=== PATIENT | male | born 1955 | race Caucasian/White ===

== ENCOUNTER → 2018-12-05 | Outpatient (CLI) | payer OTHER ==
[~2018-12-05] MED LIST: ASPIRIN81 M1 PO; ASPRIN; CARVEDILOL3.125 MG PO; CYMBALTA60 MG PO; DAYPRO600 M1 PO; FLEXERIL5 MG PO; GOOD SENSE ASPI81 M1 PO; HUMALOG100 U/ML; IMDUR SA30 MG PO; JANUVIA100 MG PO; LANTUS100 U/ML SC; LEVEMIR100 U/ML SC; LISINOPRIL/HCTZ1 TA1 PO; LISINOPRIL10 MG PO; LOPRESSOR25 MG PO; METFORMIN1000 MG PO; METFORMIN500 MG PO; MOBIC15 MG PO; NITROSTAT0.4 MG SL; NOVOLOG1 UNIT/0.0 SC; PERCOCET 650 MG1 TA1 PO; PLAVIX75 MG PO; PRAVACHOL40 MG PO; PRAVACHOL80 MG PO; PREDNICOT20 MG PO; RANEXA1000 MG PO; SERTRALINE100 MG PO; ULTRAM50 MG PO; VICODIN ES 7501 TAB PO; ZOLOFT100 MG PO
== END | disposition home or self-care (01) ==
LOC: RESCLI 02:39
DX: E78.00 Pure hypercholesterolemia, unspecified (principal); E11.59 Type 2 diabetes mellitus with other circulatory complications; I10 Essential (primary) hypertension; F32.0 Major depressive disorder, single episode, mild; M19.90 Unspecified osteoarthritis, unspecified site; I20.8 Other forms of angina pectoris; J30.89 Other allergic rhinitis; E03.9 Hypothyroidism, unspecified; Z79.4 Long term (current) use of insulin; Z79.84 Long term (current) use of oral hypoglycemic drugs; Z79.899 Other long term (current) drug therapy; Z88.8 Allergy status to other drugs, medicaments and biological substances; Z87.891 Personal history of nicotine dependence

== ENCOUNTER → 2019-03-20 | Outpatient (CLI) | payer OTHER | END | disposition home or self-care (01) | LOC: RESCLI 01:59 | DX: E11.59 Type 2 diabetes mellitus with other circulatory complications (principal); M19.90 Unspecified osteoarthritis, unspecified site; I25.708 Atherosclerosis of coronary artery bypass graft(s), unspecified, with other forms of angina pectoris; E78.00 Pure hypercholesterolemia, unspecified; J30.89 Other allergic rhinitis; E03.9 Hypothyroidism, unspecified; J43.9 Emphysema, unspecified; G62.9 Polyneuropathy, unspecified; R06.02 Shortness of breath; E66.01 Morbid (severe) obesity due to excess calories; R53.82 Chronic fatigue, unspecified; G25.81 Restless legs syndrome; Z68.41 Body mass index [BMI] 40.0-44.9, adult ==

== ENCOUNTER → 2019-03-22 | Outpatient (CLI) | payer OTHER | END | disposition home or self-care (01) | LOC: RESCLI 08:19 | DX: I25.708 Atherosclerosis of coronary artery bypass graft(s), unspecified, with other forms of angina pectoris (principal); E11.59 Type 2 diabetes mellitus with other circulatory complications; I10 Essential (primary) hypertension; F32.0 Major depressive disorder, single episode, mild; M19.90 Unspecified osteoarthritis, unspecified site; E78.00 Pure hypercholesterolemia, unspecified; J30.89 Other allergic rhinitis; E03.9 Hypothyroidism, unspecified; J43.9 Emphysema, unspecified; G47.33 Obstructive sleep apnea (adult) (pediatric); E66.01 Morbid (severe) obesity due to excess calories; R53.82 Chronic fatigue, unspecified; Z79.899 Other long term (current) drug therapy; Z88.8 Allergy status to other drugs, medicaments and biological substances ==

== ENCOUNTER → 2019-05-30 | Outpatient (CLI) | payer OTHER | END | disposition home or self-care (01) | LOC: RESCLI 00:25 | DX: E66.9 Obesity, unspecified (principal); M16.12 Unilateral primary osteoarthritis, left hip; G89.29 Other chronic pain; E11.59 Type 2 diabetes mellitus with other circulatory complications; I10 Essential (primary) hypertension; F32.0 Major depressive disorder, single episode, mild; M19.90 Unspecified osteoarthritis, unspecified site; I20.8 Other forms of angina pectoris; E78.00 Pure hypercholesterolemia, unspecified; J30.89 Other allergic rhinitis; E03.9 Hypothyroidism, unspecified; J43.9 Emphysema, unspecified; E55.9 Vitamin D deficiency, unspecified; R53.82 Chronic fatigue, unspecified; Z79.899 Other long term (current) drug therapy; Z88.8 Allergy status to other drugs, medicaments and biological substances ==

== ENCOUNTER → 2019-09-10 | Outpatient (CLI) | payer OTHER | END | disposition home or self-care (01) | LOC: RESCLI 00:42 | DX: Z13.39 Encounter for screening examination for other mental health and behavioral disorders (principal); E11.59 Type 2 diabetes mellitus with other circulatory complications; I10 Essential (primary) hypertension; F32.0 Major depressive disorder, single episode, mild; M19.90 Unspecified osteoarthritis, unspecified site; E78.00 Pure hypercholesterolemia, unspecified; E03.9 Hypothyroidism, unspecified; J43.9 Emphysema, unspecified; I25.708 Atherosclerosis of coronary artery bypass graft(s), unspecified, with other forms of angina pectoris; J30.89 Other allergic rhinitis; E66.01 Morbid (severe) obesity due to excess calories; M16.12 Unilateral primary osteoarthritis, left hip; Z68.41 Body mass index [BMI] 40.0-44.9, adult; Z79.899 Other long term (current) drug therapy ==

== ENCOUNTER → 2020-01-30 | Outpatient (CLI) | payer OTHER ==
[2020-01-30 12:13] LABS: BASO # 0.1 10*3/uL (0.0-0.1); BASO % 0.8 % (0.0-1.0); EOS # 0.2 10*3/uL (0.0-0.4); EOS % 2.8 % (1.0-4.0); HEMATOCRIT 45.7 % (42.0-52.0); LYMPH # 3.3 10*3/uL (1.3-4.4); LYMPH % 38.2 % (27.0-41.0); MEAN CELL VOLUME 91.2 fl (80.0-94.0); MEAN CORPUSCULAR HGB 30.7 pg (27.0-31.0); MEAN CORPUSCULAR HGB CONC 33.7 g/dl (33.0-37.0); MEAN PLATELET VOLUME 9.6 fl (9.6-12.3); MONO # 1.2 10*3/uL (0.1-1.0); MONO % 13.8 % (3.0-9.0); NEUT # 3.8 10*3/uL (2.3-7.9); PLATELET COUNT AUTOMATED 249 10*3/uL (130-400); RED BLOOD COUNT 5.01 10*6/uL (4.50-5.90); WHITE BLOOD COUNT 8.6 10*3/uL (4.8-10.8)
[2020-01-30 12:36] LABS: ALBUMIN 3.8 gm/dl (3.1-4.5); BUN 18 mg/dl (7-24); CREATININE 1.06 mg/dL (0.70-1.30); SGOT/AST 31 IU/L (3-35); SGPT/ALT 43 U/L (12-78); TOTAL PROTEIN 7.8 gm/dL (6.4-8.2)
[2020-01-30 14:36] LABS: ALKALINE PHOSPHATASE 70 U/L (45-117); CHLORIDE 104 mmol/L (98-107); POTASSIUM 4.6 mmol/L (3.5-5.1); SODIUM 136 mmol/L (136-145)
== END | disposition home or self-care (01) ==
LOC: RESCLI 10:53
PROVIDERS: Student in an Organized Health Care Education/Training Program
DX: M48.02 Spinal stenosis, cervical region (principal); E11.59 Type 2 diabetes mellitus with other circulatory complications; E03.9 Hypothyroidism, unspecified; E55.9 Vitamin D deficiency, unspecified

== ENCOUNTER → 2020-03-04 | Outpatient (CLI) | payer OTHER | END | disposition home or self-care (01) | LOC: RESCLI 00:41 | DX: M54.2 Cervicalgia (principal); I10 Essential (primary) hypertension; M19.90 Unspecified osteoarthritis, unspecified site; I25.708 Atherosclerosis of coronary artery bypass graft(s), unspecified, with other forms of angina pectoris; E78.00 Pure hypercholesterolemia, unspecified; E03.9 Hypothyroidism, unspecified; E11.59 Type 2 diabetes mellitus with other circulatory complications; F32.0 Major depressive disorder, single episode, mild; J43.9 Emphysema, unspecified; J30.89 Other allergic rhinitis; B35.0 Tinea barbae and tinea capitis; E66.01 Morbid (severe) obesity due to excess calories; E55.9 Vitamin D deficiency, unspecified; Z68.41 Body mass index [BMI] 40.0-44.9, adult; Z79.84 Long term (current) use of oral hypoglycemic drugs; Z79.82 Long term (current) use of aspirin; Z79.899 Other long term (current) drug therapy; Z98.890 Other specified postprocedural states; Z95.828 Presence of other vascular implants and grafts; Z87.891 Personal history of nicotine dependence ==

== ENCOUNTER → 2020-06-17 | Outpatient (CLI) | payer OTHER | END | disposition home or self-care (01) | LOC: RESCLI 01:14 | PROVIDERS: ATTEND Student in an Organized Health Care Education/Training Program | DX: E78.00 Pure hypercholesterolemia, unspecified (principal); I25.708 Atherosclerosis of coronary artery bypass graft(s), unspecified, with other forms of angina pectoris; E11.59 Type 2 diabetes mellitus with other circulatory complications; M54.2 Cervicalgia; I10 Essential (primary) hypertension; M19.90 Unspecified osteoarthritis, unspecified site; E03.9 Hypothyroidism, unspecified; F32.0 Major depressive disorder, single episode, mild; J43.8 Other emphysema; J30.89 Other allergic rhinitis; B35.0 Tinea barbae and tinea capitis; E55.9 Vitamin D deficiency, unspecified ==

== ENCOUNTER → 2020-09-30 | Outpatient (CLI) | payer SELFPAY | END | disposition home or self-care (01) | LOC: RESCLI 00:39 | PROVIDERS: ATTEND Internal Medicine | DX: E03.9 Hypothyroidism, unspecified (principal); I10 Essential (primary) hypertension; I25.708 Atherosclerosis of coronary artery bypass graft(s), unspecified, with other forms of angina pectoris; M19.90 Unspecified osteoarthritis, unspecified site; E11.59 Type 2 diabetes mellitus with other circulatory complications; F32.0 Major depressive disorder, single episode, mild; J43.9 Emphysema, unspecified; J30.89 Other allergic rhinitis; B35.0 Tinea barbae and tinea capitis; E55.9 Vitamin D deficiency, unspecified; M54.2 Cervicalgia; Z79.82 Long term (current) use of aspirin; Z79.84 Long term (current) use of oral hypoglycemic drugs; Z79.899 Other long term (current) drug therapy ==

== ENCOUNTER → 2020-11-06 | Outpatient (CLI) | payer SELFPAY | END | disposition home or self-care (01) | LOC: RESCLI 00:51 | PROVIDERS: ATTEND Internal Medicine | DX: E03.9 Hypothyroidism, unspecified (principal); M19.90 Unspecified osteoarthritis, unspecified site; I25.708 Atherosclerosis of coronary artery bypass graft(s), unspecified, with other forms of angina pectoris; I10 Essential (primary) hypertension; E11.59 Type 2 diabetes mellitus with other circulatory complications; I20.8 Other forms of angina pectoris; F32.0 Major depressive disorder, single episode, mild; J30.89 Other allergic rhinitis; B35.0 Tinea barbae and tinea capitis; J43.9 Emphysema, unspecified; E55.9 Vitamin D deficiency, unspecified; M54.2 Cervicalgia; Z79.899 Other long term (current) drug therapy; Z87.891 Personal history of nicotine dependence; Z98.890 Other specified postprocedural states ==

== ENCOUNTER → 2021-01-15 | Outpatient (CLI) | payer MEDICARE ==
[2021-01-15 08:42] LABS: BASO # 0.1 10*3/uL (0.0-0.1); BASO % 1.1 % (0.0-1.0); EOS # 0.3 10*3/uL (0.0-0.4); EOS % 3.2 % (1.0-4.0); HEMATOCRIT 43.9 % (42.0-52.0); LYMPH # 3.7 10*3/uL (1.3-4.4); LYMPH % 37.2 % (27.0-41.0); MEAN CORPUSCULAR HGB 31.4 pg (27.0-31.0); MEAN CORPUSCULAR HGB CONC 34.2 g/dl (33.0-37.0); MEAN PLATELET VOLUME 9.4 fl (9.6-12.3); MONO # 1.2 10*3/uL (0.1-1.0); MONO % 11.9 % (3.0-9.0); NEUT # 4.5 10*3/uL (2.3-7.9); NEUT % 45.3 % (47.0-73.0); PLATELET COUNT AUTOMATED 237 10*3/uL (130-400); RED BLOOD COUNT 4.77 10*6/uL (4.50-5.90); RED CELL DISTRI WIDTH 13.8 % (0-14.5); WHITE BLOOD COUNT 9.8 10*3/uL (4.8-10.8)
[2021-01-15 09:19] LABS: ALBUMIN 3.3 gm/dl (3.1-4.5); ALKALINE PHOSPHATASE 66 U/L (45-117); BUN 23 mg/dl (7-24); CHLORIDE 106 mmol/L (98-107); CHOLESTEROL 216 mg/dL (<200); CREATININE 1.13 mg/dL (0.70-1.30); LDL CHOLESTEROL 113 mg/dL (9-159); POTASSIUM 3.9 mmol/L (3.5-5.1); SGOT/AST 19 IU/L (3-35); SGPT/ALT 48 U/L (12-78); SODIUM 139 mmol/L (136-145); TOTAL PROTEIN 7.5 gm/dL (6.4-8.2); TRIGLYCERIDES 295 mg/dl (<150)
== END | disposition home or self-care (01) ==
LOC: LAB 01:39
PROVIDERS: Student in an Organized Health Care Education/Training Program; ATTEND Internal Medicine
DX: E11.59 Type 2 diabetes mellitus with other circulatory complications (principal); E03.9 Hypothyroidism, unspecified; I25.708 Atherosclerosis of coronary artery bypass graft(s), unspecified, with other forms of angina pectoris

== ENCOUNTER → 2021-02-16 | Outpatient (CLI) | payer MEDICARE | END | disposition home or self-care (01) | LOC: RESCLI 14:22 | PROVIDERS: ATTEND Social Worker Clinical | DX: F32.0 Major depressive disorder, single episode, mild (principal); J30.89 Other allergic rhinitis; I25.708 Atherosclerosis of coronary artery bypass graft(s), unspecified, with other forms of angina pectoris; E55.9 Vitamin D deficiency, unspecified; I10 Essential (primary) hypertension; E03.9 Hypothyroidism, unspecified; E78.00 Pure hypercholesterolemia, unspecified; E11.59 Type 2 diabetes mellitus with other circulatory complications; M16.12 Unilateral primary osteoarthritis, left hip; J43.9 Emphysema, unspecified; B35.0 Tinea barbae and tinea capitis; Z79.82 Long term (current) use of aspirin; Z79.84 Long term (current) use of oral hypoglycemic drugs; Z79.899 Other long term (current) drug therapy; Z87.891 Personal history of nicotine dependence ==

== ENCOUNTER → 2021-03-26 | Outpatient (CLI) | payer MEDICARE ==
[2021-03-26 11:31] LABS: BASO # 0.1 10*3/uL (0.0-0.1); BASO % 0.9 % (0.0-1.0); EOS # 0.4 10*3/uL (0.0-0.4); EOS % 3.6 % (1.0-4.0); HEMATOCRIT 42.3 % (42.0-52.0); LYMPH # 3.4 10*3/uL (1.3-4.4); LYMPH % 34.1 % (27.0-41.0); MEAN CELL VOLUME 87.9 fl (80.0-94.0); MEAN CORPUSCULAR HGB 31.6 pg (27.0-31.0); MEAN CORPUSCULAR HGB CONC 35.9 g/dl (33.0-37.0); MONO # 1.1 10*3/uL (0.1-1.0); MONO % 11.4 % (3.0-9.0); NEUT # 4.9 10*3/uL (2.3-7.9); NEUT % 49.3 % (47.0-73.0); PLATELET COUNT AUTOMATED 227 10*3/uL (130-400); RED BLOOD COUNT 4.81 10*6/uL (4.50-5.90); WHITE BLOOD COUNT 9.8 10*3/uL (4.8-10.8)
[2021-03-26 11:51] LABS: ALBUMIN 3.5 gm/dl (3.1-4.5); ALKALINE PHOSPHATASE 69 U/L (45-117); BUN 11 mg/dl (7-24); CHLORIDE 104 mmol/L (98-107); CHOLESTEROL 163 mg/dL (<200); LDL CHOLESTEROL 72 mg/dL (9-159); POTASSIUM 4.2 mmol/L (3.5-5.1); SGOT/AST 20 IU/L (3-35); SGPT/ALT 42 U/L (12-78); SODIUM 135 mmol/L (136-145); TOTAL PROTEIN 7.5 gm/dL (6.4-8.2); TRIGLYCERIDES 232 mg/dl (<150)
[2021-03-27 10:07] LABS: CREATININE,URINE 78.1 mg/dL (Not Estab.)
== END | disposition home or self-care (01) ==
LOC: RESCLI 00:45
PROVIDERS: Internal Medicine; ATTEND Internal Medicine
DX: E11.59 Type 2 diabetes mellitus with other circulatory complications (principal); I10 Essential (primary) hypertension; M19.90 Unspecified osteoarthritis, unspecified site; I25.708 Atherosclerosis of coronary artery bypass graft(s), unspecified, with other forms of angina pectoris; E78.00 Pure hypercholesterolemia, unspecified; J30.89 Other allergic rhinitis; E03.9 Hypothyroidism, unspecified; J43.9 Emphysema, unspecified; G47.33 Obstructive sleep apnea (adult) (pediatric); M16.12 Unilateral primary osteoarthritis, left hip; E66.01 Morbid (severe) obesity due to excess calories; H90.42 Sensorineural hearing loss, unilateral, left ear, with unrestricted hearing on the contralateral side; Z12.5 Encounter for screening for malignant neoplasm of prostate; Z12.11 Encounter for screening for malignant neoplasm of colon; Z79.899 Other long term (current) drug therapy; Z87.891 Personal history of nicotine dependence; Z95.828 Presence of other vascular implants and grafts; Z98.890 Other specified postprocedural states; Z79.84 Long term (current) use of oral hypoglycemic drugs

== ENCOUNTER → 2021-04-23 | Outpatient (CLI) | payer MEDICARE | END | disposition home or self-care (01) | LOC: RESCLI 02:44 | PROVIDERS: ATTEND Internal Medicine | DX: K59.00 Constipation, unspecified (principal); E11.59 Type 2 diabetes mellitus with other circulatory complications; I10 Essential (primary) hypertension; M19.90 Unspecified osteoarthritis, unspecified site; I25.708 Atherosclerosis of coronary artery bypass graft(s), unspecified, with other forms of angina pectoris; E78.00 Pure hypercholesterolemia, unspecified; J30.89 Other allergic rhinitis; E03.9 Hypothyroidism, unspecified; J43.9 Emphysema, unspecified; G47.33 Obstructive sleep apnea (adult) (pediatric); M16.12 Unilateral primary osteoarthritis, left hip; E66.01 Morbid (severe) obesity due to excess calories; H90.42 Sensorineural hearing loss, unilateral, left ear, with unrestricted hearing on the contralateral side; Z12.5 Encounter for screening for malignant neoplasm of prostate; Z12.11 Encounter for screening for malignant neoplasm of colon; E11.21 Type 2 diabetes mellitus with diabetic nephropathy; M65.332 Trigger finger, left middle finger; R39.12 Poor urinary stream; F32.0 Major depressive disorder, single episode, mild; M54.2 Cervicalgia; E55.9 Vitamin D deficiency, unspecified; Z79.82 Long term (current) use of aspirin; Z79.84 Long term (current) use of oral hypoglycemic drugs; Z79.899 Other long term (current) drug therapy; Z87.891 Personal history of nicotine dependence; Z72.89 Other problems related to lifestyle ==

== ENCOUNTER → 2021-05-21 | Outpatient (CLI) | payer MEDICARE ==
[~2021-05-21] MED LIST changes: +AMLODIPINE BES2.5 MG PO; +ARNUITY ELLIPT50 MCG INH; +FLOMAX0.4 MG PO; +ISOSORBIDE DINI30 MG PO; +LANTUS SOL100 UNIT/1 SC; +METFORMIN XR500 MG PO; -METFORMIN1000 MG PO; +NITROGLYCERIN0.4 MG SL; +Nizoral 2%15 GM T; +PROZAC20 MG PO; +UNITHROID25 MCG PO; +VICTOZA 2-0.6 MG/0.1 SC; +VITAMIN B121000 MC1 PO; +VITAMIN D325 MCG PO; +WELLBUTRIN XL150 MG PO
== END | disposition home or self-care (01) ==
LOC: RESCLI 00:08
PROVIDERS: ATTEND Internal Medicine
DX: E11.59 Type 2 diabetes mellitus with other circulatory complications (principal); I10 Essential (primary) hypertension; M19.90 Unspecified osteoarthritis, unspecified site; I25.708 Atherosclerosis of coronary artery bypass graft(s), unspecified, with other forms of angina pectoris; E78.00 Pure hypercholesterolemia, unspecified; J30.89 Other allergic rhinitis; E03.9 Hypothyroidism, unspecified; J43.9 Emphysema, unspecified; G47.33 Obstructive sleep apnea (adult) (pediatric); M16.12 Unilateral primary osteoarthritis, left hip; E66.01 Morbid (severe) obesity due to excess calories; H90.42 Sensorineural hearing loss, unilateral, left ear, with unrestricted hearing on the contralateral side; Z12.5 Encounter for screening for malignant neoplasm of prostate; Z12.11 Encounter for screening for malignant neoplasm of colon; E11.21 Type 2 diabetes mellitus with diabetic nephropathy; M65.332 Trigger finger, left middle finger; R39.12 Poor urinary stream; K59.00 Constipation, unspecified; F32.0 Major depressive disorder, single episode, mild; M54.2 Cervicalgia; E55.9 Vitamin D deficiency, unspecified; N52.9 Male erectile dysfunction, unspecified; Z87.891 Personal history of nicotine dependence; Z72.89 Other problems related to lifestyle; Z79.84 Long term (current) use of oral hypoglycemic drugs; Z79.82 Long term (current) use of aspirin; Z79.899 Other long term (current) drug therapy

== ENCOUNTER → 2021-05-25 | Day surgery (SDC) | payer MEDICARE ==
[2021-05-21 14:19] VITALS: BP 115/64
[2021-05-21 16:02] LABS: BUN 21 mg/dl (7-24); CHLORIDE 106 mmol/L (98-107); CREATININE 1.39 mg/dL (0.70-1.30); POTASSIUM 4.2 mmol/L (3.5-5.1); SODIUM 138 mmol/L (136-145)
[~2021-05-25] VITALS: Ht 177.8 cm; Wt 128.8 kg
[2021-05-25 07:11] VITALS: BP 167/87
[2021-05-25 08:00] VITALS: BP 174/48
[2021-05-25 08:15] VITALS: BP 149/56
[2021-05-25 08:27] VITALS: BP 141/57
== END | disposition home or self-care (01) ==
LOC: SDC 05-21 14:00
PROVIDERS: ATTEND Orthopaedic Surgery
DX: M65.842 Other synovitis and tenosynovitis, left hand (principal); E11.9 Type 2 diabetes mellitus without complications; I25.10 Atherosclerotic heart disease of native coronary artery without angina pectoris; I25.2 Old myocardial infarction; I11.0 Hypertensive heart disease with heart failure; F32.9 Major depressive disorder, single episode, unspecified; I50.9 Heart failure, unspecified; J44.9 Chronic obstructive pulmonary disease, unspecified; Z95.5 Presence of coronary angioplasty implant and graft; Z95.1 Presence of aortocoronary bypass graft; E03.9 Hypothyroidism, unspecified; Z99.89 Dependence on other enabling machines and devices

== ENCOUNTER → 2021-06-03 | Outpatient (CLI) | payer MEDICARE ==
[2021-06-03 08:38] LABS: BASO # 0.1 10*3/uL (0.0-0.1); BASO % 1.1 % (0.0-1.0); EOS # 0.4 10*3/uL (0.0-0.4); EOS % 4.4 % (1.0-4.0); HEMATOCRIT 44.5 % (42.0-52.0); LYMPH # 3.7 10*3/uL (1.3-4.4); LYMPH % 41.1 % (27.0-41.0); MEAN CELL VOLUME 92.7 fl (80.0-94.0); MEAN CORPUSCULAR HGB 32.1 pg (27.0-31.0); MEAN CORPUSCULAR HGB CONC 34.6 g/dl (33.0-37.0); MEAN PLATELET VOLUME 9.4 fl (9.6-12.3); MONO % 11.7 % (3.0-9.0); NEUT # 3.7 10*3/uL (2.3-7.9); NEUT % 41.4 % (47.0-73.0); PLATELET COUNT AUTOMATED 250 10*3/uL (130-400); WHITE BLOOD COUNT 8.9 10*3/uL (4.8-10.8)
[2021-06-03 08:54] LABS: ALBUMIN 3.5 gm/dl (3.1-4.5); ALKALINE PHOSPHATASE 78 U/L (45-117); BUN 19 mg/dl (7-24); CHLORIDE 104 mmol/L (98-107); CHOLESTEROL 159 mg/dL (<200); CREATININE 1.25 mg/dL (0.70-1.30); POTASSIUM 4.1 mmol/L (3.5-5.1); SGOT/AST 34 IU/L (3-35); SGPT/ALT 75 U/L (12-78); SODIUM 138 mmol/L (136-145); TOTAL PROTEIN 7.4 gm/dL (6.4-8.2); TRIGLYCERIDES 408 mg/dl (<150)
== END | disposition home or self-care (01) ==
LOC: LAB 01:02
PROVIDERS: ATTEND Internal Medicine
DX: Z23 Encounter for immunization (principal); E11.59 Type 2 diabetes mellitus with other circulatory complications; N52.9 Male erectile dysfunction, unspecified

== ENCOUNTER → 2021-07-30 | Outpatient (CLI) | payer MEDICARE | END | disposition home or self-care (01) | LOC: RESCLI 05:18 | PROVIDERS: ATTEND Internal Medicine | DX: J30.89 Other allergic rhinitis (principal); J43.9 Emphysema, unspecified; E11.59 Type 2 diabetes mellitus with other circulatory complications; I25.708 Atherosclerosis of coronary artery bypass graft(s), unspecified, with other forms of angina pectoris; M16.12 Unilateral primary osteoarthritis, left hip; E78.00 Pure hypercholesterolemia, unspecified; E55.9 Vitamin D deficiency, unspecified; M19.90 Unspecified osteoarthritis, unspecified site; K59.00 Constipation, unspecified; F32.0 Major depressive disorder, single episode, mild; I10 Essential (primary) hypertension; E03.9 Hypothyroidism, unspecified; R39.12 Poor urinary stream; Z79.82 Long term (current) use of aspirin; Z79.84 Long term (current) use of oral hypoglycemic drugs; Z79.899 Other long term (current) drug therapy; Z87.891 Personal history of nicotine dependence; Z72.89 Other problems related to lifestyle; Z98.890 Other specified postprocedural states ==

== ENCOUNTER → 2021-09-16 | Outpatient (CLI) | payer MEDICARE ==
[2021-09-16 09:41] LABS: BASO # 0.1 10*3/uL (0.0-0.1); BASO % 0.6 % (0.0-1.0); EOS # 0.3 10*3/uL (0.0-0.4); EOS % 3.1 % (1.0-4.0); HEMATOCRIT 44.8 % (42.0-52.0); LYMPH # 2.2 10*3/uL (1.3-4.4); LYMPH % 26.9 % (27.0-41.0); MEAN CORPUSCULAR HGB 30.9 pg (27.0-31.0); MEAN CORPUSCULAR HGB CONC 34.4 g/dl (33.0-37.0); MEAN PLATELET VOLUME 9.4 fl (9.6-12.3); MONO # 0.9 10*3/uL (0.1-1.0); MONO % 10.8 % (3.0-9.0); NEUT # 4.9 10*3/uL (2.3-7.9); NEUT % 58.2 % (47.0-73.0); PLATELET COUNT AUTOMATED 247 10*3/uL (130-400); RED BLOOD COUNT 4.98 10*6/uL (4.50-5.90); RED CELL DISTRI WIDTH 13.2 % (0-14.5); WHITE BLOOD COUNT 8.3 10*3/uL (4.8-10.8)
[2021-09-16 09:49] LABS: BILIRUBIN Negative (Negative); BLOOD Negative (Negative); CLARITY Clear (Clear); COLOR Yellow (Yellow); GLUCOSE 3+ (Negative); KETONE Negative (Negative); LEUKO ESTERASE Negative (Negative); NITRITE Negative (Negative); SPECIFIC GRAVITY >= 1.030 (1.001-1.030); UROBILINOGEN 0.2 E.U./dl (0.0-1.0)
[2021-09-16 10:14] LABS: MUCOUS 1+; RBC 0-2 rbc/hpf (0-2)
[2021-09-16 11:11] LABS: ALBUMIN 3.9 gm/dl (3.1-4.5); BUN 16 mg/dl (7-24); CHLORIDE 105 mmol/L (98-107); POTASSIUM 4.3 mmol/L (3.5-5.1); SODIUM 137 mmol/L (136-145); SODIUM 138 mmol/L (136-145)
[2021-09-16 11:15] LABS: CREATININE 1.05 mg/dL (0.70-1.30); IRON 91 ug/dL (65-175); TOTAL IRON BINDING CAPACITY 298 ug/dl (250-450)
[2021-09-16 11:16] LABS: FERRITIN 218.7 ng/mL (22.0-322.0); VITAMIN D, 25-HYDROXY 39.5 ng/mL (30-100)
[2021-09-16 11:20] LABS: ALBUMIN 3.8 gm/dl (3.1-4.5); ALKALINE PHOSPHATASE 68 U/L (45-117); BUN 16 mg/dl (7-24); CHOLESTEROL 143 mg/dL (<200); CREATININE 1.04 mg/dL (0.70-1.30); LDL CHOLESTEROL 52 mg/dL (9-159); SGOT/AST 32 IU/L (3-35); SGPT/ALT 53 U/L (12-78); TOTAL PROTEIN 7.7 gm/dL (6.4-8.2); TRIGLYCERIDES 207 mg/dl (<150)
== END | disposition home or self-care (01) ==
LOC: LAB 00:06 → US 08:30
PROVIDERS: Internal Medicine; ATTEND Internal Medicine Nephrology
DX: Z12.5 Encounter for screening for malignant neoplasm of prostate (principal); N18.31 Chronic kidney disease, stage 3a; D63.1 Anemia in chronic kidney disease; N25.81 Secondary hyperparathyroidism of renal origin; E11.59 Type 2 diabetes mellitus with other circulatory complications; E78.00 Pure hypercholesterolemia, unspecified; R39.12 Poor urinary stream

== ENCOUNTER → 2021-10-29 | Outpatient (CLI) | payer MEDICARE | END | disposition home or self-care (01) | LOC: RESCLI 03:22 | PROVIDERS: ATTEND Internal Medicine | DX: J30.89 Other allergic rhinitis (principal); J43.9 Emphysema, unspecified; I25.708 Atherosclerosis of coronary artery bypass graft(s), unspecified, with other forms of angina pectoris; E55.9 Vitamin D deficiency, unspecified; M19.90 Unspecified osteoarthritis, unspecified site; K59.00 Constipation, unspecified; E03.9 Hypothyroidism, unspecified; E29.1 Testicular hypofunction; E11.59 Type 2 diabetes mellitus with other circulatory complications; F32.0 Major depressive disorder, single episode, mild; I10 Essential (primary) hypertension; M16.12 Unilateral primary osteoarthritis, left hip; R39.12 Poor urinary stream; G62.9 Polyneuropathy, unspecified; Z79.899 Other long term (current) drug therapy ==

== ENCOUNTER → 2022-01-28 | Outpatient (CLI) | payer MEDICARE | END | disposition home or self-care (01) | LOC: RESCLI 01:31 | PROVIDERS: ATTEND Internal Medicine | DX: M47.816 Spondylosis without myelopathy or radiculopathy, lumbar region (principal); M51.36 Other intervertebral disc degeneration, lumbar region ==

== ENCOUNTER → 2022-05-31 | Outpatient (CLI) | payer MEDICARE | END | disposition home or self-care (01) | LOC: RESCLI 15:45 | PROVIDERS: ATTEND Internal Medicine | DX: E11.59 Type 2 diabetes mellitus with other circulatory complications (principal); I10 Essential (primary) hypertension; F32.0 Major depressive disorder, single episode, mild; M19.90 Unspecified osteoarthritis, unspecified site; E78.00 Pure hypercholesterolemia, unspecified; E03.9 Hypothyroidism, unspecified; G47.33 Obstructive sleep apnea (adult) (pediatric); E55.9 Vitamin D deficiency, unspecified; B36.9 Superficial mycosis, unspecified; E53.8 Deficiency of other specified B group vitamins; J30.2 Other seasonal allergic rhinitis; Z13.6 Encounter for screening for cardiovascular disorders; K52.9 Noninfective gastroenteritis and colitis, unspecified; M47.816 Spondylosis without myelopathy or radiculopathy, lumbar region; I25.10 Atherosclerotic heart disease of native coronary artery without angina pectoris; E78.5 Hyperlipidemia, unspecified; F32.A Depression, unspecified; J44.9 Chronic obstructive pulmonary disease, unspecified; R11.0 Nausea; R39.12 Poor urinary stream; Z72.89 Other problems related to lifestyle; Z87.891 Personal history of nicotine dependence; Z98.890 Other specified postprocedural states; Z79.82 Long term (current) use of aspirin; Z79.84 Long term (current) use of oral hypoglycemic drugs; Z79.899 Other long term (current) drug therapy ==

== ENCOUNTER → 2022-09-15 | Outpatient (CLI) | payer MEDICARE ==
[2022-09-15 16:35] LABS: BASO # 0.1 10*3/uL (0.0-0.1); BASO % 0.9 % (0.0-1.0); EOS # 0.2 10*3/uL (0.0-0.4); EOS % 2.3 % (1.0-4.0); HEMATOCRIT 44.9 % (42.0-52.0); LYMPH # 2.7 10*3/uL (1.3-4.4); LYMPH % 26.7 % (27.0-41.0); MEAN CELL VOLUME 92.4 fl (80.0-94.0); MEAN CORPUSCULAR HGB 31.9 pg (27.0-31.0); MEAN CORPUSCULAR HGB CONC 34.5 g/dl (33.0-37.0); MEAN PLATELET VOLUME 9.4 fl (9.6-12.3); MONO # 1.1 10*3/uL (0.1-1.0); MONO % 10.5 % (3.0-9.0); NEUT # 5.9 10*3/uL (2.3-7.9); NEUT % 59.1 % (47.0-73.0); PLATELET COUNT AUTOMATED 236 10*3/uL (130-400); RED BLOOD COUNT 4.86 10*6/uL (4.50-5.90); RED CELL DISTRI WIDTH 13.4 % (0-14.5)
[2022-09-15 17:04] LABS: ALKALINE PHOSPHATASE 67 U/L (46-116); BUN 26 mg/dl (9-23); CHLORIDE 101 mmol/L (98-107); POTASSIUM 4.8 mmol/L (3.4-5.1); SGPT/ALT 40 U/L (10-49); TOTAL PROTEIN 6.8 gm/dL (6.0-8.0)
== END | disposition home or self-care (01) ==
LOC: RESCLI 05:01
PROVIDERS: Internal Medicine; ATTEND Internal Medicine
DX: E11.59 Type 2 diabetes mellitus with other circulatory complications (principal); E78.00 Pure hypercholesterolemia, unspecified; M19.90 Unspecified osteoarthritis, unspecified site; E03.9 Hypothyroidism, unspecified

== ENCOUNTER → 2022-09-23 | Outpatient (CLI) | payer MEDICARE ==
[2022-09-23 08:17] LABS: BASO # 0.1 10*3/uL (0.0-0.1); BASO % 0.8 % (0.0-1.0); EOS # 0.3 10*3/uL (0.0-0.4); HEMATOCRIT 46.3 % (42.0-52.0); LYMPH # 3.6 10*3/uL (1.3-4.4); LYMPH % 35.1 % (27.0-41.0); MEAN CELL VOLUME 92.4 fl (80.0-94.0); MEAN CORPUSCULAR HGB 31.7 pg (27.0-31.0); MEAN CORPUSCULAR HGB CONC 34.3 g/dl (33.0-37.0); MEAN PLATELET VOLUME 9.1 fl (9.6-12.3); MONO # 1.2 10*3/uL (0.1-1.0); MONO % 11.7 % (3.0-9.0); NEUT % 49.1 % (47.0-73.0); PLATELET COUNT AUTOMATED 235 10*3/uL (130-400); RED BLOOD COUNT 5.01 10*6/uL (4.50-5.90); RED CELL DISTRI WIDTH 13.4 % (0-14.5); WHITE BLOOD COUNT 10.2 10*3/uL (4.8-10.8)
[2022-09-23 08:34] LABS: ALKALINE PHOSPHATASE 67 U/L (46-116); BUN 24 mg/dl (9-23); CHLORIDE 104 mmol/L (98-107); POTASSIUM 4.5 mmol/L (3.4-5.1); SGPT/ALT 42 U/L (10-49); TOTAL PROTEIN 7.1 gm/dL (6.0-8.0)
== END | disposition home or self-care (01) ==
LOC: LAB 00:56
PROVIDERS: Internal Medicine; ATTEND Internal Medicine
DX: E11.59 Type 2 diabetes mellitus with other circulatory complications (principal); E78.00 Pure hypercholesterolemia, unspecified; E03.9 Hypothyroidism, unspecified; M19.90 Unspecified osteoarthritis, unspecified site

== ENCOUNTER → 2022-10-31 | Day surgery (SDC) | payer MEDICARE ==
[2022-10-31] VITALS (7 sets, daily range): BP systolic 108–144; BP diastolic 58–101
[~2022-10-31] VITALS: Ht 177.8 cm; Wt 122.5 kg
[~2022-10-31] MED LIST changes: +MILLTRIUM SENI1 EACH PO; +PROTONIX40 MG PO
== END | disposition home or self-care (01) ==
LOC: SDC 10-27 11:00
PROVIDERS: ATTEND Surgery
DX: Z12.11 Encounter for screening for malignant neoplasm of colon (principal); D12.4 Benign neoplasm of descending colon; K29.50 Unspecified chronic gastritis without bleeding; I25.2 Old myocardial infarction; I25.10 Atherosclerotic heart disease of native coronary artery without angina pectoris; I13.0 Hypertensive heart and chronic kidney disease with heart failure and stage 1 through stage 4 chronic kidney disease, or unspecified chronic kidney disease; E11.22 Type 2 diabetes mellitus with diabetic chronic kidney disease; J44.9 Chronic obstructive pulmonary disease, unspecified; N18.30 Chronic kidney disease, stage 3 unspecified; I50.9 Heart failure, unspecified; F32.A Depression, unspecified; E78.00 Pure hypercholesterolemia, unspecified; K21.9 Gastro-esophageal reflux disease without esophagitis; Z87.891 Personal history of nicotine dependence; Z85.828 Personal history of other malignant neoplasm of skin; Z98.890 Other specified postprocedural states; Z79.899 Other long term (current) drug therapy

== ENCOUNTER → 2023-01-03 | Outpatient (CLI) | payer MEDICARE ==
[2023-01-03 15:20] LABS: BASO # 0.1 10*3/uL (0.0-0.1); BASO % 0.7 % (0.0-1.0); EOS # 0.4 10*3/uL (0.0-0.4); EOS % 3.8 % (1.0-4.0); HEMATOCRIT 43.1 % (42.0-52.0); LYMPH # 3.2 10*3/uL (1.3-4.4); LYMPH % 33.3 % (27.0-41.0); MEAN CELL VOLUME 93.3 fl (80.0-94.0); MEAN CORPUSCULAR HGB 31.8 pg (27.0-31.0); MEAN CORPUSCULAR HGB CONC 34.1 g/dl (33.0-37.0); MEAN PLATELET VOLUME 9.2 fl (9.6-12.3); MONO # 1.1 10*3/uL (0.1-1.0); MONO % 11.6 % (3.0-9.0); NEUT # 4.8 10*3/uL (2.3-7.9); NEUT % 50.2 % (47.0-73.0); PLATELET COUNT AUTOMATED 246 10*3/uL (130-400); RED BLOOD COUNT 4.62 10*6/uL (4.50-5.90); RED CELL DISTRI WIDTH 13.3 % (0-14.5); WHITE BLOOD COUNT 9.5 10*3/uL (4.8-10.8)
[2023-01-03 15:29] LABS: BILIRUBIN Negative (Negative); BLOOD Negative (Negative); CLARITY Clear (Clear); COLOR Dark Yellow (Yellow); GLUCOSE 3+ (Negative); KETONE Trace (Negative); LEUKO ESTERASE Negative (Negative); NITRITE Negative (Negative); SPECIFIC GRAVITY 1.025 (1.001-1.030); URINE CREATININE RANDOM 155.36 mg/dL
[2023-01-03 15:56] LABS: POTASSIUM 5.2 mmol/L (3.4-5.1)
[2023-01-03 16:00] LABS: VITAMIN D, 25-HYDROXY 35.5 ng/mL (30-100)
[2023-01-03 16:22] LABS: BACTERIA 1+; MUCOUS 1+
== END | disposition home or self-care (01) ==
LOC: LAB 14:58
PROVIDERS: ATTEND Internal Medicine Nephrology
DX: N18.31 Chronic kidney disease, stage 3a (principal); N25.81 Secondary hyperparathyroidism of renal origin; D63.1 Anemia in chronic kidney disease

== ENCOUNTER → 2023-03-24 | Outpatient (CLI) | payer MEDICARE ==
[2023-03-24 12:04] LABS: BASO # 0.1 10*3/uL (0.0-0.1); EOS # 0.3 10*3/uL (0.0-0.4); EOS % 3.1 % (1.0-4.0); HEMATOCRIT 41.8 % (42.0-52.0); LYMPH # 2.9 10*3/uL (1.3-4.4); LYMPH % 32.7 % (27.0-41.0); MEAN CELL VOLUME 91.9 fl (80.0-94.0); MEAN CORPUSCULAR HGB 32.3 pg (27.0-31.0); MEAN CORPUSCULAR HGB CONC 35.2 g/dl (33.0-37.0); MEAN PLATELET VOLUME 9.3 fl (9.6-12.3); MONO # 1.1 10*3/uL (0.1-1.0); MONO % 11.7 % (3.0-9.0); NEUT # 4.6 10*3/uL (2.3-7.9); NEUT % 50.9 % (47.0-73.0); PLATELET COUNT AUTOMATED 261 10*3/uL (130-400); RED BLOOD COUNT 4.55 10*6/uL (4.50-5.90); RED CELL DISTRI WIDTH 13.9 % (0-14.5)
[2023-03-24 12:13] LABS: URINE CREATININE RANDOM 103.47 mg/dL
[2023-03-24 12:23] LABS: BILIRUBIN Negative (Negative); BLOOD Negative (Negative); CLARITY Clear (Clear); COLOR Yellow (Yellow); GLUCOSE 3+ (Negative); KETONE Negative (Negative); LEUKO ESTERASE Negative (Negative); NITRITE Negative (Negative); PH 5.5 (4.5-8.0); SPECIFIC GRAVITY 1.025 (1.001-1.030); UROBILINOGEN 0.2 E.U./dl (0.0-1.0)
[2023-03-24 12:35] LABS: WBC 0-2 wbc/hpf (0-5)
[2023-03-24 12:50] LABS: BUN 19 mg/dl (9-23); CHLORIDE 104 mmol/L (98-107); POTASSIUM 4.5 mmol/L (3.4-5.1)
[2023-03-24 12:54] LABS: VITAMIN D, 25-HYDROXY 37.9 ng/mL (30-100)
== END | disposition home or self-care (01) ==
LOC: LAB 11:33
PROVIDERS: ATTEND Internal Medicine Nephrology
DX: N18.31 Chronic kidney disease, stage 3a (principal); D63.1 Anemia in chronic kidney disease; N25.81 Secondary hyperparathyroidism of renal origin

== ENCOUNTER → 2023-05-24 | Outpatient (CLI) | payer MEDICARE | END | disposition home or self-care (01) | LOC: RESCLI 01:49 → LAB 01:49 → RESCLI 03:26 | PROVIDERS: ATTEND Family Medicine | DX: I10 Essential (primary) hypertension (principal); E11.59 Type 2 diabetes mellitus with other circulatory complications; E55.9 Vitamin D deficiency, unspecified; I25.708 Atherosclerosis of coronary artery bypass graft(s), unspecified, with other forms of angina pectoris; J30.2 Other seasonal allergic rhinitis; B36.9 Superficial mycosis, unspecified; M19.90 Unspecified osteoarthritis, unspecified site; E78.00 Pure hypercholesterolemia, unspecified; E03.9 Hypothyroidism, unspecified; R39.12 Poor urinary stream; F32.0 Major depressive disorder, single episode, mild ==

== ENCOUNTER → 2023-09-06 | Outpatient (CLI) | payer MEDICARE | END | disposition home or self-care (01) | LOC: RESCLI 00:31 | PROVIDERS: ATTEND Student in an Organized Health Care Education/Training Program | DX: E11.59 Type 2 diabetes mellitus with other circulatory complications (principal); I10 Essential (primary) hypertension; F32.0 Major depressive disorder, single episode, mild; M19.90 Unspecified osteoarthritis, unspecified site; E78.00 Pure hypercholesterolemia, unspecified; E03.9 Hypothyroidism, unspecified; Z12.11 Encounter for screening for malignant neoplasm of colon; E55.9 Vitamin D deficiency, unspecified; R39.12 Poor urinary stream; K22.4 Dyskinesia of esophagus; K29.50 Unspecified chronic gastritis without bleeding; K21.9 Gastro-esophageal reflux disease without esophagitis; B36.9 Superficial mycosis, unspecified; J43.9 Emphysema, unspecified; F10.90 Alcohol use, unspecified, uncomplicated; Z87.891 Personal history of nicotine dependence; Z79.84 Long term (current) use of oral hypoglycemic drugs; Z79.82 Long term (current) use of aspirin; Z79.899 Other long term (current) drug therapy ==

== ENCOUNTER → 2024-02-21 | Outpatient (CLI) | payer MEDICARE | END | disposition home or self-care (01) | LOC: RESCLI 02:37 | PROVIDERS: ATTEND Internal Medicine | DX: B02.8 Zoster with other complications (principal); B02.29 Other postherpetic nervous system involvement; E11.59 Type 2 diabetes mellitus with other circulatory complications; E11.9 Type 2 diabetes mellitus without complications; I10 Essential (primary) hypertension; E78.00 Pure hypercholesterolemia, unspecified; E03.9 Hypothyroidism, unspecified; E55.9 Vitamin D deficiency, unspecified; Z87.891 Personal history of nicotine dependence; F10.90 Alcohol use, unspecified, uncomplicated; Z82.49 Family history of ischemic heart disease and other diseases of the circulatory system; Z98.890 Other specified postprocedural states; Z95.5 Presence of coronary angioplasty implant and graft; J44.9 Chronic obstructive pulmonary disease, unspecified; Z79.82 Long term (current) use of aspirin; Z79.899 Other long term (current) drug therapy ==

== ENCOUNTER 2024-04-28 19:09 | Emergency (ER) | payer MEDICARE ==
[~2024-04-28] VITALS: Ht 180.3 cm; Wt 136.1 kg
[2024-04-28 19:39] LABS: HEMATOCRIT 35.4 % (42.0-52.0); MEAN CELL VOLUME 92.9 fl (80.0-94.0); MEAN CORPUSCULAR HGB 31.5 pg (27.0-31.0); MEAN CORPUSCULAR HGB CONC 33.9 g/dl (33.0-37.0); MEAN PLATELET VOLUME 9.7 fl (9.6-12.3); PLATELET COUNT AUTOMATED 178 10*3/uL (130-400); RED BLOOD COUNT 3.81 10*6/uL (4.50-5.90); RED CELL DISTRI WIDTH 13.6 % (0-14.5); WHITE BLOOD COUNT 13.6 10*3/uL (4.8-10.8)
[2024-04-28 19:40] LABS: MANUAL DIFF REFLEX YES
[2024-04-28 20:01] LABS: PLATELET SUFFICIENCY NORMAL (NORMAL); TOTAL CELLS COUNTED 100 #CELLS
== END 2024-04-28 22:05 | disposition home or self-care (01) ==
LOC: ED 19:09
PROVIDERS: Internal Medicine
DX: U07.1 COVID-19 (principal); S80.811A Abrasion, right lower leg, initial encounter; E87.1 Hypo-osmolality and hyponatremia; R79.82 Elevated C-reactive protein (CRP); D72.829 Elevated white blood cell count, unspecified; D63.1 Anemia in chronic kidney disease; E11.22 Type 2 diabetes mellitus with diabetic chronic kidney disease; I13.0 Hypertensive heart and chronic kidney disease with heart failure and stage 1 through stage 4 chronic kidney disease, or unspecified chronic kidney disease; I50.9 Heart failure, unspecified; R11.2 Nausea with vomiting, unspecified; I12.9 Hypertensive chronic kidney disease with stage 1 through stage 4 chronic kidney disease, or unspecified chronic kidney disease; N18.9 Chronic kidney disease, unspecified; I25.2 Old myocardial infarction; J44.9 Chronic obstructive pulmonary disease, unspecified; F32.A Depression, unspecified; Z98.890 Other specified postprocedural states; W06.XXXA Fall from bed, initial encounter; Y93.89 Activity, other specified; Y92.009 Unspecified place in unspecified non-institutional (private) residence as the place of occurrence of the external cause; Y99.8 Other external cause status

== ENCOUNTER → 2024-10-03 | Outpatient (CLI) | payer MEDICARE | END | disposition home or self-care (01) | LOC: US 00:22 | PROVIDERS: ATTEND Internal Medicine Nephrology | DX: N17.9 Acute kidney failure, unspecified (principal); R60.0 Localized edema; R06.02 Shortness of breath ==

== ENCOUNTER → 2025-04-16 | Outpatient (CLI) | payer MEDICARE | END | disposition home or self-care (01) | LOC: RAD 11:23 | PROVIDERS: ATTEND Family Medicine | DX: M19.031 Primary osteoarthritis, right wrist (principal); M25.531 Pain in right wrist; E11.621 Type 2 diabetes mellitus with foot ulcer; L97.529 Non-pressure chronic ulcer of other part of left foot with unspecified severity ==